=== PATIENT | male | born 1960 | race Caucasian/White ===

== ENCOUNTER → 2016-12-10 | Outpatient (CLI) | payer OTHER | END | disposition home or self-care (01) | LOC: CFH 16:33 → EDBD 17:00 | PROVIDERS: ATTEND Physician Assistant | DX: K40.90 Unilateral inguinal hernia, without obstruction or gangrene, not specified as recurrent (principal) | CPT/HCPCS: 76857 ==

== ENCOUNTER 2017-05-20 07:06 | Day surgery (SDC) | payer OTHER ==
[~2017-05-20] VITALS: Ht 175.3 cm; Wt 105.1 kg
[2017-05-20] MEDS ORDERED: LACTATED RINGERS 1,000 ML IV SCH (07:25)
[2017-05-20 07:27] VITALS: BP 174/92
[2017-05-20] MEDS ORDERED: FENTANYL PF 100 MCG/2ML IV PRN (09:00)
[2017-05-20] MEDS ORDERED: ONDANSETRON 2MG/ML, 2ML IVPush PRN (09:00)
[2017-05-20] MEDS ORDERED: ACETAMINOPHEN 325 MG TABLET PO PRN (09:00)
[2017-05-20] MEDS ORDERED: OXYcodone 5 MG/5 ML ORAL.SOL UDC PO PRN (09:00)
[2017-05-20] MEDS ORDERED: HYDROmorphone 1 MG/ML, 1ML IV PRN (09:00)
[2017-05-20] MEDS ORDERED: hydrALAzine 20 MG/ML, 1ML IV PRN (09:00)
[2017-05-20] MEDS ORDERED: MEPERIDINE/PF 25MG/0.5ML IVPush PRN (09:00)
[2017-05-20] MEDS ORDERED: PROMETHAZINE 25 MG/ML, 1ML IV PRN (09:00)
[2017-05-20] MEDS ORDERED: LABETALOL 5MG/ML, 20ML IV PRN (09:00)
[2017-05-20] MEDS ORDERED: GLYCOPYRROLATE 0.2MG/1ML, 5ML ONE (09:24)
[2017-05-20] MEDS ORDERED: NEOSTIGMINE 1 MG/ML, 10ML ONE (09:24)
[2017-05-20] MEDS ORDERED: FENTANYL PF 250 MCG/5ML ONE (09:24)
[2017-05-20] MEDS ORDERED: PROPOFOL 10 MG/ML, 20ML ONE (09:24)
[2017-05-20] MEDS ORDERED: CEFAZOLIN 1,000 MG ONE (09:24)
[2017-05-20] MEDS ORDERED: BUPIVACAINE/PF 0.25% INFIL ONE (09:59)
== END 2017-05-20 15:45 ==
LOC: OUT 07:06
PROVIDERS: ATTEND Surgery
DX: K40.20 Bilateral inguinal hernia, without obstruction or gangrene, not specified as recurrent (principal); E78.5 Hyperlipidemia, unspecified; N40.0 Benign prostatic hyperplasia without lower urinary tract symptoms; Z79.82 Long term (current) use of aspirin
CPT/HCPCS: 49505; C1727; C1760; C1781; J0690; J1170; J2405; J2704; J2710; J3010; J3490; J7120

== ENCOUNTER 2017-05-25 13:20 | Emergency (ER) | payer OTHER ==
[~2017-05-25] VITALS: Ht 175.3 cm; Wt 105.0 kg
[2017-05-25] MEDS ORDERED: ACETAMINOPHEN 325 MG TABLET PO ONE (14:30)
[2017-05-25] MEDS ORDERED: SODIUM CHLORIDE 0.9% 1,000ML IVBOLUS ONE (14:30)
[2017-05-25] MEDS ORDERED: ONDANSETRON 2MG/ML, 2ML IVPush ONE (14:30)
[2017-05-25] MEDS ORDERED: ACETAMINOPHEN 500 MG TABLET ONE (14:42)
[2017-05-25] MEDS ORDERED: ONDANSETRON 2MG/ML, 2ML ONE (14:42)
[2017-05-25 15:08] LABS: HEMATOCRIT 40.1 % (39.2-51.8); HEMOGLOBIN 13.8 g/dL (13.7-18.0); WHITE BLOOD COUNT 8.1 x10^3/uL (3.4-10)
[2017-05-25 15:44] LABS: BLOOD UREA NITROGEN 17 mg/dL (7-18)
[2017-05-25] MEDS ORDERED: OMNIPAQUE 350 MG/ML, 100ML BOTTLE ONE (16:28)
[2017-05-25 16:31] VITALS: BP 155/88
[2017-05-25] MEDS ORDERED: BUTALBIT/ACETAMIN/CAFF/CODEINE CAPSULE ONE (16:58)
[2017-05-25] MEDS ORDERED: BUTALB/APAP/CAFFEINE 50MG/325MG/40MG PO ONE (17:00)
[2017-05-25] MEDS ORDERED: KETOROLAC 30 MG/1 ML IVPush ONE (17:30)
[2017-05-25] MEDS ORDERED: BUTALBIT/ACETAMIN/CAFF/CODEINE CAPSULE PO PRN (17:30)
[2017-05-25] MEDS ORDERED: KETOROLAC 30 MG/1 ML ONE (17:55)
== END 2017-05-25 18:31 | disposition home or self-care (01) ==
LOC: ED 16:21
DX: G44.219 Episodic tension-type headache, not intractable (principal); I10 Essential (primary) hypertension; Z87.891 Personal history of nicotine dependence
CPT/HCPCS: 36415; 70450; 70496; 80048; 82040; 85025; 93005; 96361; 96374; 96375; 99285; J1885; J2405; J7030; Q9967